=== PATIENT | male | born 2000 | race African-American/Black ===

== ENCOUNTER 2021-07-15 14:03 | Emergency (ER) | payer SELFPAY ==
[~2021-07-15] VITALS: Ht 172.7 cm; Wt 63.5 kg
[2021-07-15 14:21] VITALS: BP 129/65
--- NOTE | 2021-07-15 14:42 | NUR ---
PT AMBULATED TO BED, STEADY GAIT
--- NOTE | 2021-07-15 14:50 | NUR ---
20 y/o M BIB self from home c/o R eye irritation and swelling x 2 days. Patient states he was driving, turned on the AC and had dust hit his eyes. Patient states swelling worsened this morning. States 5/10, "something feels stuck"/constant, non-radiating pain. Denies itchiness, drainage, blurry vision. Reports eye flushes with minor relief. Denies meds prior to arrival. Bed locked in lowest position, side rails x 1. PMH/Sx/Meds: asthma NKDA
[2021-07-15] MEDS ORDERED: FLUORESCEIN OPTH STRIP 1 MG OP ONE (15:00)
[2021-07-15] MEDS ORDERED: TETRACAINE HCL/PF 0.5% OPTH 4 ML BTL OP ONE (15:00)
[2021-07-15] MEDS ORDERED: ERYT5OIN58 OP (15:27)
[2021-07-15 16:28] VITALS: BP 129/65
--- NOTE | 2021-07-15 16:29 | NUR ---
Patient discharged with v/s stable. Written and verbal after care instructions given and explained. Patient alert, oriented and verbalized understanding of instructions. Ambulatory with steady gait. All questions addressed prior to discharge. ID band removed. Patient advised to follow up with PMD. Rx of ERYTHROMYCIN given. Patient educated on indication of medication including possible reaction and side effects. Opportunity to ask questions provided and answered.
== END 2021-07-15 16:25 | disposition home or self-care (01) ==
LOC: MED 14:06
DX: S05.01XA Injury of conjunctiva and corneal abrasion without foreign body, right eye, initial encounter (principal); H01.001 Unspecified blepharitis right upper eyelid; Z79.2 Long term (current) use of antibiotics; X58.XXXA Exposure to other specified factors, initial encounter; Y92.89 Other specified places as the place of occurrence of the external cause; Y93.89 Activity, other specified; Y99.8 Other external cause status
CPT/HCPCS: 90715; 99283

== ENCOUNTER 2021-09-30 00:25 | Emergency (ER) | payer SELFPAY ==
[~2021-09-30 00:25] MED LIST: ERYT5OIN58 OP
[2021-09-30] MEDS ORDERED: ASPIRIN 325 MG TAB PO ONE (00:40)
[2021-09-30] MEDS ORDERED: LORazepam 2 MG/ML VIAL IVP ONE (00:40)
[2021-09-30] MEDS ORDERED: NITROGLYCERIN 0.4 MG TAB SL ONE (00:40)
[2021-09-30] MEDS ORDERED: ONDANSETRON 4 MG/2 ML VIAL IVP ONE ×2 (00:45→00:50)
[2021-09-30] MEDS ORDERED: PANTOPRAZOLE 40 MG INJ VIAL IVP ONE ×2 (00:45→00:50)
--- NOTE | 2021-09-30 00:54 | NUR ---
CALLED TO TRIAGE, NO ANSWER. CALLED PT ON HIS PHONE WHO SAID HE CHANGED HIS MIND AND DIDN'T WANT TO BE SEEN. MECHEBS
[2021-09-30] MEDS ORDERED: ONDA-188 SL (07:33)
[2021-09-30] MEDS ORDERED: AZIT250T4 PO (07:33)
[2021-09-30] MEDS ORDERED: PRED50TA2 PO (07:33)
== END 2021-09-30 00:54 | disposition left against medical advice (07) ==
LOC: MED 00:25
DX: K92.0 Hematemesis (principal); Z53.21 Procedure and treatment not carried out due to patient leaving prior to being seen by health care provider

== ENCOUNTER 2021-09-30 03:22 | Emergency (ER) | payer SELFPAY ==
[~2021-09-30] VITALS: Ht 172.7 cm; Wt 65.8 kg
[2021-09-30 03:42] VITALS: BP 102/66
--- NOTE | 2021-09-30 03:48 | NUR ---
TO LOBBY FOLLOWING TRIAGE
[2021-09-30] MEDS ORDERED: DEXAMETHASONE 4 MG/ML VIAL IM ONE (04:50)
[2021-09-30] MEDS ORDERED: DEXAMETHASONE 10 MG/ML VIAL IM ONE (05:15)
[2021-09-30] MEDS ORDERED: ONDA-188 SL (07:33)
[2021-09-30] MEDS ORDERED: AZIT250T4 PO (07:33)
[2021-09-30] MEDS ORDERED: PRED50TA2 PO (07:33)
--- NOTE | 2021-09-30 07:35 | NUR ---
Patient discharged with v/s stable. Written and verbal after care instructions ABOUT TONSILLITIS given and explained. Patient alert, oriented and verbalized understanding of instructions. Ambulatory with steady gait. All questions addressed prior to discharge. ID band removed. Patient advised to follow up with PMD. Rx of ZITHROMAX Z PACK, ZOFRAN, AND PREDNISONE given. Patient educated on indication of medication including possible reaction and side effects. Opportunity to ask questions provided and answered. PT DISCHARGED BY DR CACERES.
--- NOTE | 2021-09-30 07:35 | NUR ---
Note eliotone in EDM - 09/30/21 at 0744 by [email or web address] Patient discharged with v/s stable. Written and verbal after care instructions ABOUT TONSILLITIS given and explained. Patient alert, oriented and verbalized understanding of instructions. Ambulatory with steady gait. All questions addressed prior to discharge. ID band removed. Patient advised to follow up with PMD. Rx of ZITHROMAX Z PACK, ZOFRAN, AND PREDNISONE given. Patient educated on indication of medication including possible reaction and side effects. Opportunity to ask questions provided and answered.
== END 2021-09-30 07:35 | disposition home or self-care (01) ==
LOC: MED 03:22
DX: J03.90 Acute tonsillitis, unspecified (principal)
CPT/HCPCS: 70490; 96372; 99284; J1100